=== PATIENT | male | born 1945 | race Hispanic/Latino ===

== ENCOUNTER 2017-09-11 01:31 | Emergency (ER) | payer MEDICARE ==
[~2017-09-11] VITALS: Ht 175.3 cm; Wt 82.1 kg
[2017-09-11] MEDS ORDERED: MORPHINE SULFATE INJ 4 MG/ML INJ IV STA (02:13)
[2017-09-11] MEDS ORDERED: ONDANSETRON HCL 4 MG ORAL DISINTEGRATING TAB PO ONE (02:15)
[2017-09-11] MEDS ORDERED: SODIUM CHLORIDE FLUSH 10 ML SYR INJ PRN (02:15)
[2017-09-11 04:57] VITALS: BP 138/84
== END 2017-09-11 04:30 | disposition home or self-care (01) ==
LOC: FSED 01:31
DX: M25.552 Pain in left hip (principal); M79.652 Pain in left thigh; M25.562 Pain in left knee; M79.662 Pain in left lower leg; M17.12 Unilateral primary osteoarthritis, left knee; I10 Essential (primary) hypertension; E11.9 Type 2 diabetes mellitus without complications
CPT/HCPCS: 73501; 73552; 73560; 73590; 80053; 85025; 93971; 99284; J2270